=== PATIENT | male | born 1975 | race Caucasian/White ===

== ENCOUNTER → 2017-03-07 | Outpatient (CLI) | payer OTHER ==
[~2017-03-07] MED LIST: BUPR1FIL3 SL; IBUP800T37 PO; LOSA50TA72 PO; OSE75 PO; PREG50CA48 PO
--- NOTE | 2017-03-07 10:57 | RADIOLOGY IMAGING REPORT ---
FACILITY: [facility] - [place] PATIENT NAME: Rahul Washington : 1975 MR: [id number] V: [id number] EXAM DATE: ORDERING PHYSICIAN: JUNIOR HERNANDEZ TECHNOLOGIST: Location: [facility] [place] Patient: Rahul Washington : 1975 Visit/Account:[id number] Date of Sevice: 03/07/2017 Exam type: LUMBAR SPINE 4 VIEWS History: Pain L4-5 on the left Comparison: October 10, 2015. Findings: There are five nonrib-bearing lumbar-type vertebral bodies present. There is straightening of the no rmal lumbar lordosis which may be related to muscle spasm. The disc spaces appear well-preserved. T here is no evidence of acute fractures or subluxations IMPRESSION: 1. Unremarkable lumbar spine series other than straightening of the normal lumbar lordosis which may be related to muscle spasm.. If patient's symptoms persist MR may be of value Report Dictated By: Raysa Obrien MD at 03/07/2017 10:51 AM Report E-Signed By: Raysa Obrien MD at 03/07/2017 10:54 AM WSN:[email or web address]
== END ==
LOC: RAD 09:34
PROVIDERS: ATTEND Clinical Nurse Specialist Family Health
DX: M54.5 Low back pain (principal)
CPT/HCPCS: 72120

== ENCOUNTER → 2017-03-21 | Outpatient (CLI) | payer OTHER ==
--- NOTE | 2017-03-21 13:37 | RADIOLOGY IMAGING REPORT ---
FACILITY: [facility] PATIENT NAME: Rahul Washington : 1975 MR: [id number] V: [id number] EXAM DATE: ORDERING PHYSICIAN: RAHUL MATUTE TECHNOLOGIST: Location: [facility] Patient: Rahul Washington : 1975 Visit/Account:[id number] Date of Sevice: 03/21/2017 Exam type: VENOUS DOPP LOW RIGHT EXTREMIT History: Right calf pain and swelling Comparison: None. Findings: The right lower extremity veins were imaged including the right common femoral vein, greater saphenou s vein, superficial femoral vein, popliteal vein, peroneal vein posterior tibial vein and anterior ti bial veins revealing no evidence intraluminal thrombi. The veins were compressible and demonstrated phasic flow IMPRESSION: 1. No sonographic evidence DVT involving the right lower extremity veins Report Dictated By: Raysa Obrien MD at 03/21/2017 1:31 PM Report E-Signed By: Raysa Obrien MD at 03/21/2017 1:33 PM WSN:[email or web address] FVMeri
== END ==
LOC: RAD 10:15
PROVIDERS: ATTEND Family Medicine
DX: M79.661 Pain in right lower leg (principal); M79.89 Other specified soft tissue disorders

== ENCOUNTER 2017-05-02 15:06 | Emergency (ER) | payer OTHER ==
[2017-05-02 15:15] VITALS: BP 123/81
--- NOTE | 2017-05-02 15:37 | ER Report ---
History and Physical Time Seen By MD: 15:27 HPI/ROS CHIEF COMPLAINT: Right upper arm pain HISTORY OF PRESENT ILLNESS: 41-year-old male patient presents to emergency room with complaint of right upper arm pain. Patient states that this is been going on for the last couple of days. Patient states that he was lifting weights a few days ago, it was a very low intensity which he rated a 2-3 out of 10. Patient states that after that that he had significant amounts of pain. He states he went to [facility] and they ordered an ultrasound of the shoulder. He states that he never had that done as he states that the hospital does not do that. He states that he came here because the pain became unbearable. He states that there is nothing seems to make the pain better or worse. He states he is taking Tylenol ibuprofen with no improvement. REVIEW OF SYSTEMS: Respiratory: No cough, no dyspnea. Cardiovascular: No chest pain, no palpitations. Gastrointestinal: No vomiting, no abdominal pain. Musculoskeletal: As noted above Allergies: Coded Allergies: No Known Drug Allergies (Unverified , 01/05/16) Home Meds Active Scripts Ketorolac Tromethamine (KETOROLAC TROMETHAMINE) 10 Mg Tab, 10 MG PO Q6H, #20 TAB Prov:EUSEBIO SHABAZZ [facility] 05/02/17 Reported Medications Losartan Potassium (LOSARTAN POTASSIUM) 50 Mg Tablet, 50 MG PO QDAY 01/05/16 Pregabalin (LYRICA) 50 Mg Capsule, 50 MG PO BID, CAPSULE 10/10/15 Buprenorphine Hcl/Naloxone Hcl (SUBOXONE 12 MG-3 MG SL FILM) 1 Each Film, 1 EACH SL QDAY, FILM 10/10/15 Discontinued Scripts Oseltamivir Phosphate (TAMIFLU) 75 Mg Cap, 75 MG PO BID, #10 CAP Prov:EUSEBIO SHABAZZ LPN OR MEDICAL ASSISTANT 01/05/16 Past Medical/Surgical History Patient has a past medical history of hypertension. Patient has surgical history of left ankle surgery. Reviewed Nurses Notes: Yes Hx Smoking: Yes Smoking Status: Former Smoker Constitutional Vital Sign - Last 24 Hours 05/02/17 15:15 Temp 98.0 Pulse 71 Resp 18 B/P (MAP) 123/81 Pulse Ox 94 O2 Delivery Room Air Physical Exam General Appearance: The patient is alert, has no immediate need for airway protection and no current signs of toxicity. Respiratory: Chest is non tender, lungs are clear to auscultation. Cardiac: regular rate and rhythm Musculoskeletal: Neck: Neck is supple and non tender. Extremities have full range of motion and are non tender. Patient has tenderness to the triceps area. Patient has no weakness with extension or flexion. There is no muscle discordant that would be found with tendon injury, patient had no tenderness to palpation along the tendons. Skin: No rashes or lesions. DIFFERENTIAL DIAGNOSIS: After history and physical exam differential diagnosis was considered for contusion, sprain, strain. Medical Decision Making ED Course/Re-evaluation ED Course Patient was admitted to examined, history and physical were obtained. Differential diagnoses were considered. On examination patient had no obvious tenderness to the tendons of the right upper arm, no weakness with flexion and extension. We discussed doing an x-ray, however with no trauma do not believe that be beneficial. I believe that what we'll need to do is immobilize the elbow , using a sling and put him on anti-inflammatories. If his pain persists throughout the week and I would like him follow-up with orthopedics. Patient was given the number for Dr. Rosenthal, orthopedic surgeon. He is to ice and rest his arm, wearing sling 20 through 24 hours a day. Patient verbalized understanding and agreement with plan. However when the production line technician went into place the patient in the sling the patient refused a sling stating that he had what home and he would use that one instead. Decision to Disposition Date: May 02, 2017 Decision to Disposition Time: 16:01 Depart Departure Latest Vital Signs Vital Signs Date Time Temp Pulse Resp B/P (MAP) Pulse Ox O2 Delivery O2 Flow Rate FiO2 05/02/17 15:15 98.0 71 18 123/81 94 Room Air Impression: Primary Impression: Triceps strain Condition: Improved Disposition: HOME OR SELF-CARE Referrals: DIXIE ROSENTHAL MD New Scripts Ketorolac Tromethamine (KETOROLAC TROMETHAMINE) 10 Mg Tab 10 MG PO Q6H, #20 TAB Prov: HARIKAEUSEBIO FNP 05/02/17 Patient Instructions: Muscle Strain (ED) Additional Instructions: Limit activity by pain. Ice the upper arm 2-3 times a day for 10-15 minutes. Wear the sling 23/24 hours a day for the next 3 days. If the pain persists on Friday follow up with Dr. Rosenthal at [facility]. You may take Tylenol in addition to the Toradol, but no Ibuprofen or Aleve. Problem Qualifiers Primary Impression: Triceps strain Encounter type: initial encounter Laterality: right Qualified Codes: S46.311A - Strain of muscle, fascia and tendon of triceps, right arm, initial encounter EUSEBIO SHABAZZ May 02, 2017 15:37
[2017-05-02] MEDS ORDERED: KET10 PO (15:59)
== END 2017-05-02 16:11 | disposition home or self-care (01) ==
LOC: ER 15:07
DX: S46.311A Strain of muscle, fascia and tendon of triceps, right arm, initial encounter (principal); X50.0XXA Overexertion from strenuous movement or load, initial encounter
CPT/HCPCS: 99282